=== PATIENT | male | born 1990 | race Caucasian/White ===

== ENCOUNTER 2022-04-13 13:34 | Outpatient (CLI) | payer OTHER, SELFPAY ==
[2022-04-13 14:29] LABS: Cholesterol* 199 mg/dL (90-199); Glucose* 84 mg/dL (60-115); HDL Cholesterol* 44 mg/dL (>=40); LDL Cholesterol Calculated 80 mg/dL (<100); Triglycerides* 376 mg/dL (40-149)
== END 2022-04-13 13:35 | disposition home or self-care (01) ==
PROVIDERS: PCP Family Medicine; Visit Provider Family Medicine
DX: Z13.1 Encounter for screening for diabetes mellitus (principal); Z13.6 Encounter for screening for cardiovascular disorders
CPT/HCPCS: 80061; 82947

== ENCOUNTER 2023-06-16 09:24 | Outpatient (CLI) | payer OTHER, SELFPAY ==
--- OUTSIDE RECORDS SUMMARY | 2023-06-17 06:20 | XMS_ITS | Referral Summary ---
Author Name Unknown Organization [facility] Address [address] [place] [address] Care Team Providers Care Repairer Cylinder Heads Name Role Phone Stef Nunez D.O. Primary Care Provider [phone] Source Comments Patient records contain information from all sites at [facility]. For routine questions regarding patient records, call [phone] during business hours, M-F 8:00 AM - 5:00 PM Central Time. Record requests for emergency care only can be directed to [phone] at any time.[facility] Allergies No known active allergies Medications Medication Sig Dispensed Refills Start Date End Date Status citalopram (CeleXA) 20 mg tablet Take 20 mg by mouth daily. Active buPROPion XL (WELLBUTRIN XL) 300 mg 24 hr tablet Take 1 tablet (300 mg total) by mouth every morning. 90 tablet 1 07/14/2022 Active acetaminophen (TYLENOL) 500 mg tablet Take 2 tablets (1,000 mg total) by mouth every 6 (six) hours as needed for pain. 07/14/2022 Active aspirin 81 mg chewable tablet Chew 1 tablet (81 mg total) 2 (two) times a day for 28 days. Take this medication through 08/11/22 for DVT prophylaxis. May be bought over the counter. 07/14/2022 Active polyethylene glycol (MIRALAX) 17 gram powder packet Take 1 packet by mouth daily as needed for constipation. Dissolve each 17 g dose in 240 mLs (8 ounces) of beverage. 07/14/2022 Active Additional Information Patient not taking.Reported on 09/29/2022 sennosides-docusate sodium (SENOKOT-S) 8.6-50 mg per tablet Take 1 tablet by mouth 2 (two) times a day as needed for constipation. 07/14/2022 Active Additional Information Patient not taking.Reported on 09/29/2022 propranoloL (INDERAL) 20 mg tablet Take 1 tablet by mouth 2 (two) times a day. 10/19/2021 Active hydrOXYzine (VISTARIL) 50 mg capsule Take 1 capsule (50 mg total) by mouth 2 (two) times a day. 07/14/2022 Active oxyCODONE (ROXICODONE) 5 mg immediate release tabletIndications:A cute Pain Exception Take 1 tablet (5 mg total) by mouth every 4 (four) hours as needed for severe pain or score 7-10 of 10 Indication: Acute Pain Exception. 15 tablet 07/14/2022 Active Additional Information Patient not taking.Reported on 09/29/2022 Active Problems Problem Noted Date Diagnosed Date Fracture Foot Fourth Metatar lee Nondisplaced Open Initial Left 07/14/2022 Fracture Foot Fifth Metatarsal Displaced Open In itial Left 07/14/2022 Crushing Injury Right Index Finger Initial 07/13 Nicotine Dependence Cigarettes 02/01/2020 Anxiety Generalized Disorder 08/31/2019 Posttraumatic Stress Disorder Brief 07/26/2019 Persistent Depressive Disorder 07/26/2019 Resolved Problems Problem Noted Date Diagnosed Date Resolved Date Suicide Attempt Personal History 08/31/2019 12/25/2019 Immunizations Name Administration Dates Next Due Influenza (IM) Preservative Free 11/24/2012 Tdap 07/13/2022,01/04/2019,10/22/2010 Social History Tobacco Use Types Packs/Day Years Used Date Smoking Tobacco: Every Day E-cigarettes Smokeless Tobacco: Never Tobacco Cessation:Ready to Q uit: Not Asked; Counseling Given: Not Answered Alcohol Use Standard Drinks/Week Comments Not Currently 0 (1 standard drink = 0.6 oz pur e alcohol) Humiliation, Afraid, Rape, and Kick questionnair e Answer Date Recorded Within the last year, have y ou been afraid of your partner or ex-partner? No 12/12/2019 Within the last year, have y ou been humiliated or emotionally abused in other ways by your partner or ex-partner? No Within the last year, have y ou been kicked, hit, slapped, or otherwise physically hurt by your partner or ex-partner? No 12/12/2019 Within the last year, have y ou been raped or forced to have any kind of sexual activity by your partner or ex-partner? No 12/12/2019 Social Connection and Isolation Panel [NHANES] A nswer Date Recorded In a typical week, how many times do you talk on the phone with family, friends, or neighbors? Once a week 12/12/2019 How often do you get together with friends or re latives? Once a week 12/12/2019 How often do you attend sikhism or oriental orthodox serv ices? Never 12/12/2019 Do you belong to any clubs o r organizations such as sikhism groups, unions, fraternal or athletic groups, or school groups? No 12/12/2019 How often do you attend meet ings of the clubs or organizations you belong to? Never 12/12/2019 Are you , , di vorced, , never , or living with a partner? 12/12/2019 AUDIT-C Answer Date Recorded Frequency of Alcohol Consumption Monthly or less 12/12/2019 Average Number of Drinks 3 or 4 020 Frequency of Binge Drinking Less than monthly Overall Financial Resource Strain (CARDIA) Answe r Date Recorded How hard is it for you to pa y for the very basics like food, housing, medical care, and heating? Hard 12/12/2019 PHQ-2 Answer Date Recorded PHQ-2 Score 4 01/11/2020 [facility] - Occupational Stress Questionnaire Answer Date Recorded Do you feel stress - tense, restless, nervous, or anxious, or unable to sleep at night because your mind is troubled all the time - these days? To some extent 12/12/2019 Exercise Vital Sign Answer Date Recorde d On average, how many days pe r week do you engage in moderate to strenuous exercise (like a brisk walk)? 1 day 12/12/2019 On average, how many minutes do you engage in exercise at this level? 30 min 12/12/2019 Hunger Vital Sign Answer Date Recorded Within the past 12 months, y ou worried that your food would run out before you got the money to buy more. Never true Within the past 12 months, t he food you bought just didn't last and you didn't have money to get more. Patient declined PRAPARE - Transportation Answer Date Re corded In the past 12 months, has l ack of transportation kept you from medical appointments or from getting medications? Patient declined 12/12/2019 In the past 12 months, has l ack of transportation kept you from meetings, work, or from getting things needed for daily living? No 12/12/2019 Depression Answer Date Recor ded PHQ-9 Total Score (max 27) 13 01/10 Nutrition Answer Date Recorded Nutrition: EVOO Fat Source Unknown 01/09 Nutrition: Servings of Fruits/Vegetables per Day Not on file 01/09/2023 Dental Answer Date Recorded Dental: Regular Dentist Unknown 01/10/20 Education Answer Date Recorded What is the highest level of school you have completed or the highest degree you have received? 12th grade 12/12/2019 Sex and Gender Information Value Date Recorded Sex Assigned at Not on file Gender Identity Not on file Sexual Orientation Not on file Last Filed Vital Signs Vital Sign Reading Time Taken Comments Blood Pressure 117/62 07/14/2022 12:40 PM CDT Pulse 89 07/14/2022 12:40 PM CDT Temperature 36.9 ??C (98.4 ??F) 07/14/2022 12:40 PM C DT Respiratory Rate 16 07/14/2022 12:40 PM CDT Oxygen Saturation 93% 07/14/2022 12:40 PM CDT Inhaled Oxygen Concentration - - Weight 96.3 kg (212 lb 4.9 oz) 02/01/2020 3:58 P M TIRE MOUNTER Height 180.3 cm (5' 11) 07/13/2022 11:30 PM CDT Body Mass Index 29.62 11/02/2019 2:43 PM CDT Plan of Treatment Not on file Medical Devices Explanted Type Area Monitoring Manager Device Identifier Shelf Expiration Date Model / Serial / Lot Kwire Fix Stn Ss Sngl 0.062x9 - [id number] Implanted:Qty: 2 on 07/13/2022 by Cecilia Ordonez M.D. at [facility] Explanted:Qty: 2 on 08/25/2022 by Betty Falk MPAS, P.A.-C. Hardware e.g. pins/screws/ rods Left: Foot Mariela [id number] / / Advance Directives For more information, please contact: [phone] * Full Code (Latest Code Status on File) Date Activated Date Inactivated Comments 07/13/2022 6:36 PM 07/14/2022 3:13 PM Question Answer Comments Full Code: Discussed Care Teams Repairer Cylinder Heads Relationship Specialty Start Date End Date Stef Nunez D.O. [address] [place] [address] [place] [id number] PCP - General Family Medicine 05/20/23
--- OUTSIDE RECORDS SUMMARY | 2023-06-17 06:20 | XMS_ITS ---
Author Name Unknown Organization [facility] Address [address] [place] [address] Care Team Providers Care Aluminum Hydroxide Process Operator Name Role Phone Unavailable Unavailable Unavailable Surgery Details Not on file Complications Check Surgery Details section. Procedure Estimated Blood Loss Check Surgery Details section. Procedure Findings Check Surgery Details section. Procedure Specimens Taken Check Surgery Details section.
--- OUTSIDE RECORDS SUMMARY | 2023-06-17 06:20 | XMS_ITS | Clinical Summary ---
Author Name Unknown Organization [facility] Address [address] [place] [address] Care Team Providers Care Purchasing Department Clerk Name Role Phone Stef Nunez D.O. Primary Care Provider [phone] Source Comments Patient records contain information from all sites at [facility]. For routine questions regarding patient records, call [phone] during business hours, M-F 8:00 AM - 5:00 PM Central Time. Record requests for emergency care only can be directed to [phone] at any time.[facility] Allergies No known active allergies Medications Medication [...] Influenza (IM) Preservative Free 11/24/2012 Tdap 07/13/2022,01/04/2019,10/22/2010 Family History Medical History Relation Name Comments Diverticulosis of colon Father Relation Name Status Comments Father Alive Social History Tobacco Use Types Packs/Day Years [...] week 12/12/2019 How often do you attend oriental orthodox or adventist serv ices? Never 12/12/2019 Do you belong to any clubs o r organizations such as oriental orthodox groups, unions, fraternal or athletic groups, or [...] Answer Date Recorded PHQ-2 Score 4 01/11/2020 [facility] - Occupational Stress Questionnaire Answer Date Recorded [...] lb 4.9 oz) 02/01/2020 3:58 P M BARREL FILLER Height 180.3 cm (5' 11) 07/13/2022 11:30 PM CDT Body Mass Index 29.62 11/02/2019 2:43 PM CDT Plan of Treatment Health Maintenance Due Date Last Done Comments Depression Monitoring (PHQ-9) 1989 HIV Screening 1989 Hepatitis C Screening 1989 Pneumococcal vaccine (0-64 years) (1 of 2 - PCV) 1995 Hepatitis A Vaccines (1 of 2 - Risk 2-dose series) 01/11/2008 Hepatitis B Vaccines (1 of 3 - 19+ 3-dose series) 01/11/2008 Tobacco Cessation counseling 11/01/2020 11/02/2019 COVID-19 Vaccine (2022-24 season) 2022 Influenza Vaccine (#1) 2022 11/24/2012 DTaP,Tdap,and Td Vaccines (5 - Td or Tdap) 07/13/2032 07/13/2022, 01/04/2019, 11/10/2010, Additional history exists HPV Vaccines Aged Out No longer eligi ble based on patient's age to complete this topic Medical Devices Explanted Type Area Sexual Health Physician Device Identifier Shelf Expiration Date Model / Serial / Lot Kwire Fix Stn Ss Sngl 0.062x9 - [id number] Implanted:Qty: 2 on 07/13/2022 by Cecilia Ordonez M.D. at [facility] Explanted:Qty: 2 on 08/25/2022 by Betty Falk MPAS, P.A.-C. Hardware e.g. pins/screws/ rods Left: Foot Mariela [id number] / / Advance Directives For more information, please contact: [phone] * Full Code (Latest Code Status on File) Date Activated Date Inactivated Comments 07/13/2022 6:36 PM 07/14/2022 3:13 PM Question Answer Comments Full Code: Discussed Care Teams Purchasing Department Clerk Relationship Specialty Start Date End Date Stef Nunez D.O. [address] [place] [phone] PCP - General Family Medicine 05/20/23
== END 2023-06-16 09:25 | disposition home or self-care (01) ==
LOC: NFLDREF 06-17 06:19
PROVIDERS: PCP Family Medicine; Referring Provider Family Medicine; Visit Provider Family Medicine
DX: E78.1 Pure hyperglyceridemia (principal)
CPT/HCPCS: 80061

== ENCOUNTER 2024-09-11 08:30 | Outpatient (CLI) | payer OTHER, SELFPAY | END 2024-09-11 08:31 | disposition home or self-care (01) | LOC: NFLDREF 09-12 04:09 | PROVIDERS: PCP Family Medicine; Referring Provider Family Medicine; Visit Provider Family Medicine | DX: I10 Essential (primary) hypertension (principal); E78.5 Hyperlipidemia, unspecified | CPT/HCPCS: 80048; 80061 ==

== ENCOUNTER 2024-10-09 08:56 | Outpatient (CLI) | payer OTHER, SELFPAY ==
--- NOTE | 2024-10-16 12:29 | W.PM.SLEEP ---
Sleep Study Details Details Interpreting Provider: Jocelyn Date of Sleep Study: 10/09/24 Sleep Study Details: STUDY TYPE:? Home unattended ? BMI:? 39.04 ORDERING PROVIDER:? Matthew INDICATION:? Concerned about sleep apnea ? SLEEP SUMMARY:? 393 minutes monitored RESPIRATORY SUMMARY:? AHI 28.9 per rule 1A, 19.1 per CMS guideline Low oxygen 81 3.1% of study oxygen less than 90% Snoring 97.3% PERIODIC LIMB MOVEMENTS OF SLEEP:? Not recorded CARDIAC:? Range 45-105, mean 64.6 beats per minute IMPRESSION:? Moderate obstructive sleep apnea RECOMMENDATION: Treatment options include CPAP, dental appliance and airway expansion surgery. CPAP is most likely to be effective. Weight loss is also recommended
== END 2024-10-09 08:57 | disposition home or self-care (01) ==
LOC: SLEEP 08:57
PROVIDERS: PCP Family Medicine; Visit Provider Family Medicine
DX: G47.33 Obstructive sleep apnea (adult) (pediatric) (principal)
CPT/HCPCS: 95806